=== PATIENT | female | born 1990 | race African-American/Black ===

== ENCOUNTER 2021-04-08 10:48 | Emergency (ER) | payer OTHER, SELFPAY ==
[2021-04-08 12:04] VITALS: BP 116/72; PULSE 81; RESP 19; TEMP 36.6; O2SAT 98; BMI 24.3
--- NOTE | 2021-04-08 14:00 | ED.URI ---
HPI - URI/Sore Throat General Chief Complaint: Upper Respiratory Symptoms Stated Complaint: Dizzy/vomiting Time Seen by Provider: 04/08/21 12:51 Source: patient Mode of arrival: ambulatory Limitations: no limitations History of Present Illness MD elicited complaint: cough, rhinorrhea and other (n/v body aches) Onset (ago): day(s) (6) Consistency: constant Severity: moderate Description of mucous: clear Able to tolerate fluids by mouth: Yes Exacerbating factors: nothing Relieving factors: nothing Context: sick contacts (thinks son has COVID - unsure was sent home from school last week never got result but he was kept out of school for 5 days) Associated symptoms: chills, myalgias, rhinorrhea, sore throat, nausea and vomiting Treatments prior to arrival: none Related Data Previous Rx's Medication Instructions Recorded ondansetron 4 mg disintegrating 4 mg PO Q8H PRN #20 tab 04/08/21 tablet Allergies Allergy/AdvReac Type Severity Reaction Status Date / Time No Known Allergies Allergy Verified 04/08/21 14:07 Review of Systems Review of Systems: Constitutional : no Fever, positive Chills, positive fatigue, positive Malaise ENT/Mouth : positive sore throat, positive runny nose Eyes: No Discharge Cardiovascular : No Chest Pain, No SOB Respiratory : No Cough, No Sputum Gastrointestinal : pos Nausea, pos Vomiting, No Diarrhea Genitourinary : No Dysuria, No Urinary Frequency Musculoskeletal : positive Myalgia Skin : No rash Neuro : No Headache PMFSH Past Medical History Medical History No known health problems Social History Social History (Updated 04/08/21 @ 14:10 by Stephanie Fox DO) Patient Tobacco Use Status: Current everyday Tobacco user Advance Directives: No Advance Directives Information Provided: No Patient : No Physical Exam Vital Signs: Vital Signs: Last Vital Signs Temp 98 F 04/08/21 12:04 Pulse 81 04/08/21 12:04 Resp 19 04/08/21 12:04 BP 116/72 04/08/21 12:04 Pulse Ox 98 04/08/21 12:04 BMI result Body Mass Index 24.3 Appearance: Alert. Oriented X3. No acute distress. Eyes: Pupils equal, round and reactive to light. ENT: Pharynx normal. normal TMs bilaterally, MMM Neck: Normal inspection. Neck supple. CVS: Normal heart rate and rhythm. Pulses normal. Respiratory: No respiratory distress. Breath sounds normal. Abdomen: Soft and non-tender. Skin: Skin warm and dry. Normal skin color. Normal skin turgor. Extremities: No lower extremity edema. No calf ttp Neuro: Oriented X 3. No motor deficit. No sensory deficit. Course Course Course Narrative: given mAb form and instructions to send to infusion center - patient verbalized understanding MDM - URI/Sore Throat MDM Narrative Medical decision making narrative: 31 yo female with no sig PMH here with URI and viral symptoms she is not toxic appearing, clear lungs, MMM, no tachycardia thinks her son might have had COVID at this time will obtain COVID swab and start on ODT zofran she can be managed as outpatient 98% on RA and tolerating water in exam room. Lab Data Labs: Lab Results 04/08/21 Range/Units 14:05 COVID-19 ([facility]) Positive A (Negative) COVID-19 Clin Com See Note Discharge Plan Discharge Clinical Impression: COVID-19 Patient Disposition: Home, Self-Care Instructions: COVID-19 (Coronavirus Disease 2019) (ED) Additional Instructions: return to ED for any worsening symptoms or concerns monitor your breathing if you are so short of breath you cannot walk to your bathroom please seek immediate care Prescriptions: New ondansetron 4 mg tablet,disintegrating 4 mg PO Q8H PRN (Reason: nausea and vomiting) Qty: 20 RF: 0 Stand Alone Forms: Work/School Release
[2021-04-08] MEDS: Ondansetron ODT 4 MG TAB.RAPDIS TRANSLINGU (14:22)
[2021-04-08 14:25] LABS: COVID-19 Test Positive (Negative)
== END 2021-04-08 14:43 | disposition home or self-care (01) ==
PROVIDERS: Emergency Provider Emergency Medicine
DX: U07.1 COVID-19 (principal)
CPT/HCPCS: 87635; 99283

== ENCOUNTER 2021-06-27 10:33 | Emergency (ER) | payer OTHER, SELFPAY ==
[2021-06-27 10:57] VITALS: BP 132/89; PULSE 74; RESP 17; TEMP 36.9; O2SAT 98; BMI 23.3
[2021-06-27 11:40] LABS: COVID-19 Test Negative (Negative)
--- NOTE | 2021-06-27 11:51 | ED.DENTAL ---
HPI - Dental/Oral General Chief complaint: General Medical Stated complaint: pt states she smells and tastes garbage Time Seen by Provider: 06/27/21 11:15 Source: patient Mode of arrival: ambulatory Limitations: no limitations History of Present Illness HPI Narrative: 31-year-old female who had COVID a few months ago presenting to the ED with complaints of foul odor to her breath/mouth over the past 1-2 weeks. Reports that she has history of broken teeth although is unsure if this is related be due to she is not having any dental pain. She reports that she feels like her taste buds and smell smell like garbage. She denies any other symptoms complaints or concerns at this time. Onset (ago): week(s) (1) Duration: constant Relieving factors: nothing Exacerbating factors: nothing Context: history of dental caries and poor dental care Treatment prior to arrival: none Related Data Previous Rx's Medication Instructions Recorded ondansetron 4 mg disintegrating 4 mg PO Q8H PRN #20 tab 04/08/21 tablet chlorhexidine gluconate 0.12 % 15 ml BUCCAL BID #473 ml 06/27/21 mouthwash clindamycin HCl 300 mg capsule 600 mg PO TID 10 Days #60 cap 06/27/21 Allergies Allergy/AdvReac Type Severity Reaction Status Date / Time cephalexin [From Keflex] Allergy Unknown Verified 06/27/21 11:00 Review of Systems Review of Systems: Constitutional : No Fever, No Chills, No changes in PO intake, No difficulty speaking, no recent dental procedure, no heat or cold intolerance while eating, no recent face trauma, ENT/Mouth : + foul odor to breath, No swallowing difficulty, no change in voice, No jaw pain, No facial swelling, no drooling, no trismus, no bleeding, no throat swelling, no lacerations, no tongue swelling, gum swelling, Eyes: No Eye Pain, No periorbital Swelling Cardiovascular : No Chest Pain, No SOB Respiratory : No Cough, No Sputum, No Wheezing, No Smoke Exposure, No Dyspnea Gastrointestinal : No Nausea, No Vomiting, No Diarrhea Genitourinary : No Dysuria Musculoskeletal : No Myalgias Skin : No rash, no facial swelling or redness, Neuro : No Weakness, No Numbness, No Headache Yes all other systems are reviewed and are negative PMFSH Past Medical History Attestation statement: The following information was validated with the patient. Medical History No known health problems Social History Social History Patient Tobacco Use Status: Current everyday Tobacco user Advance Directives: No Advance Directives Information Provided: No Physical Exam Vital Signs: Vital Signs: Last Vital Signs Temp 98.5 F 06/27/21 10:57 Pulse 74 06/27/21 10:57 Resp 17 06/27/21 10:57 BP 132/89 06/27/21 10:57 Pulse Ox 98 06/27/21 10:57 BMI result Body Mass Index 23.3 vital signs have been reviewed as normal and appeared to be correct. Blood pressure normal. Heart rate normal. Respiration rate normal. Temperature normal. Oxygen saturation normal. Appearance: Alert. Oriented X3. No acute distress. Head: Normal external exam. Normocephalic. Atraumatic. Eyes: PERRLA. EOMI. Conjunctiva and sclera normal. Eyelids normal. ENT: EAC normal. TM's Normal. Pharynx normal. Uvula midline. Moist mucous membranes. No trismus noted. No drooling noted. No muffled voice noted. Dentition: Patient with poor dentition throughout with multiple old fractured teeth with multiple dental caries. Gingival within normal limits. No fluctuance. Not consistent with peritonsillar abscess. Not consistent with dental abscess. No salivary duct obstruction noted. Neck: Normal inspection. Neck supple. FROM. No adenopathy. Thyroid Normal. No meningeal signs. No neck mass noted. Trachea midline. CVS: Normal heart rate and rhythm. Heart sound normal. No murmurs noted. Pulses normal throughout. Respiratory: No respiratory distress. Painless inspiration. Breath sounds normal. No wheezes/rales/rhonchi noted. Chest nontender. No accessory muscle usage noted or decreased air movement noted. Back: Full range of motion noted. Skin: Skin warm and dry. Normal skin color. Normal skin turgor. No rashes/lesions/lacerations noted. Extremities:Extremities exhibit normal range of motion. Extremities nontender. Neuro: Oriented X 3. No motor deficit. No sensory deficit. Reflexes normal. Course Course Course Narrative: 31-year-old female who had COVID a few months ago presenting to the ED with complaints of foul odor to her breath/mouth over the past 1-2 weeks. Reports that she has history of broken teeth although is unsure if this is related be due to she is not having any dental pain. She reports that she feels like her taste buds and smell smell like garbage. She denies any other symptoms complaints or concerns at this time. COVID swab negative. Will treat patient for halitosis possibly most likely from her old fractures. No signs of abscesses. Uvula midline no deviation. Airway patent. Will DC home with antibiotics and symptomatic treatment instructions return if any new or worsening symptoms follow up with oral surgeon. Patient understands agrees with this plan. MDM - Dental/Oral Medical Records Attestation: I reviewed the patient's medical records. Lab Data Labs: Lab Results 06/27/21 Range/Units 11:20 COVID-19 ([facility]) Negative (Negative) COVID-19 Clin Com See Note Discharge Plan Discharge Clinical Impression: Halitosis Patient Disposition: Home, Self-Care Additional Instructions: You had a negative COVID swab. Prescriptions: New clindamycin HCl 300 mg capsule 600 mg PO TID 10 Days Qty: 60 0RF chlorhexidine gluconate 0.12 % mouthwash 15 ml buccal BID Qty: 473 0RF No Action ondansetron 4 mg tablet,disintegrating 4 mg PO Q8H PRN (Reason: nausea and vomiting) Qty: 20 0RF Referrals: Ashwin Kathleen MD [Primary Care Provider] - (And your dentist) Stand Alone Forms: Work/School Release Print Language: Kinyarwanda
== END 2021-06-27 12:00 | disposition home or self-care (01) ==
LOC: HO.ED 11:54
PROVIDERS: Physician Assistant Medical; Emergency Provider Emergency Medicine; PCP Internal Medicine
DX: R19.6 Halitosis (principal); Z20.822 Contact with and (suspected) exposure to COVID-19; Z79.899 Other long term (current) drug therapy
CPT/HCPCS: 87635; 99283

== ENCOUNTER 2022-01-19 16:59 | Emergency (ER) | payer OTHER, SELFPAY ==
--- NOTE | ~2022-01-19 | XR_ITS ---
EXAMINATION: XR FOOT, LEFT CLINICAL INFORMATION: Fall COMPARISON: None TECHNIQUE: AP, lateral, and oblique views of the left foot. FINDINGS: No acute fracture or dislocation. Joint spaces throughout the foot are maintained. Normal alignment at the Lisfranc joint on this nonweightbearing exam. No ankle joint effusion. XR/XR foot LT 2V IMPRESSION: No acute fracture or dislocation.
--- NOTE | ~2022-01-19 | XR_ITS ---
EXAMINATION: XR SHOULDER, LEFT CLINICAL INFORMATION: Fall COMPARISON: None TECHNIQUE: AP external rotation, Grashey, scapular Y, and axillary views of the left shoulder. FINDINGS: No fracture or dislocation. Glenohumeral joint space is maintained. Acromiohumeral interval is preserved. No periarticular soft tissue calcification. AC joint is congruent and intact. Visualized left lung is grossly clear. XR/XR shoulder LT min 2V IMPRESSION: No fracture or dislocation.
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
[2022-01-19 17:06] VITALS: BP 140/70; PULSE 120; O2SAT 96
[2022-01-19 17:50] VITALS: BP 136/79; PULSE 110; RESP 16; TEMP 36.8; O2SAT 100; BMI 24.1
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
[2022-01-19] MEDS: Ibuprofen 600 MG TABLET PO (22:39)
== END 2022-01-19 23:29 | disposition home or self-care (01) ==
PROVIDERS: Emergency Provider Emergency Medicine
DX: S40.212A Abrasion of left shoulder, initial encounter (principal); S90.32XA Contusion of left foot, initial encounter; S90.31XA Contusion of right foot, initial encounter; M54.2 Cervicalgia; R51.9 Headache, unspecified; V48.6XXA Car passenger injured in noncollision transport accident in traffic accident, initial encounter; Y93.9 Activity, unspecified; Y92.410 Unspecified street and highway as the place of occurrence of the external cause; Y99.9 Unspecified external cause status
CPT/HCPCS: 70450; 73030; 73620; 99283; 99284